=== PATIENT | male | born 1985 | race Two or more races ===

== ENCOUNTER 2017-10-23 21:24 | Emergency (ER) | payer SELFPAY ==
[2017-10-23 21:28] VITALS: BP 130/87; PULSE 84; RESP 18; TEMP 97.5; O2SAT 96
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
[2017-10-23 23:04] LABS: BARBITURATES, UR NEGATIVE (NEGATIVE); BENZODIAZEPINES, UR NEGATIVE (NEGATIVE); OPIATES, UR NEGATIVE (NEGATIVE); PHENCYCLIDINE, UR NEGATIVE (NEGATIVE)
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
== END 2017-10-24 01:39 | disposition home or self-care (01) ==
LOC: H.ER 21:24
DX: F10.129 Alcohol abuse with intoxication, unspecified (principal); S09.90XA Unspecified injury of head, initial encounter; Y04.0XXA Assault by unarmed brawl or fight, initial encounter; Y92.89 Other specified places as the place of occurrence of the external cause
CPT/HCPCS: 70450; 72125; 99284; G0480